=== PATIENT | male | born 1980 | race Hispanic/Latino ===

== ENCOUNTER 2017-04-11 18:54 | Emergency (ER) | payer SELFPAY ==
[2017-04-11] MEDS ORDERED: [UNRECOGNIZED DRUG - OTHER] AD (19:24)
[2017-04-11] MEDS ORDERED: AMOXICILLIN500 MG PO (19:24)
[2017-04-11] MEDS ORDERED: PERCOCET 5/325M1 TAB PO (19:24)
[2017-04-11 19:39] VITALS: BP 122/76
== END 2017-04-11 19:39 | disposition home or self-care (01) | DRG 153 ==
LOC: ED 18:54
DX: H66.91 Otitis media, unspecified, right ear (principal); H60.501 Unspecified acute noninfective otitis externa, right ear